=== PATIENT | female | born 1960 | race Caucasian/White ===

== ENCOUNTER 2016-07-17 22:43 | Emergency (ER) | payer BC ==
--- NOTE | 2016-07-25 13:49 | ER ---
ADMIT: 07/17/2016 RM/LOC: ER [facility] MR#: [id number] [address] [id number] REED MURRIETA [address] [place] [id number] Emergency Room Report SEX: F AGE: 55 : 1960 DATE: 07/17/2016 ADDENDUM: CHIEF COMPLAINT: Foreign body in left eye. HISTORY OF PRESENT ILLNESS: This is a 55-year-old, who was taking her contacts, they ripped into half. She is not able to get the other half out. I was able to identify and remove it. I fluorescein the eye afterwards, there was no abrasion to the eye. I told her to follow up with Dr. Mac if she has any kind of increased pain or any vision changes. CLINICAL IMPRESSION: Foreign body removal from left eye. QUAN Saleh / Evaristo Brumfield MD / adeolal JOB #: [id number] CC: Evaristo Brumfield MD, Attending Physician Prasanth Chowdary MD, Family Physician
== END 2016-07-17 23:20 | disposition home or self-care (01) ==
LOC: ER 22:43
PROC: 08C1XZZ Extirpation of Matter from Left Eye, External Approach (ICD-10-PCS; principal; 2016-07-17)
DX: T15.92XA Foreign body on external eye, part unspecified, left eye, initial encounter (principal); J45.909 Unspecified asthma, uncomplicated; Z88.0 Allergy status to penicillin; Z88.1 Allergy status to other antibiotic agents